=== PATIENT | male | born 1990 | race Caucasian/White ===

== ENCOUNTER 2017-08-17 23:35 | Emergency (ER) | payer SELFPAY ==
[2017-08-18] MEDS: CEPHALEXIN 500 MG CAP PO (03:10)
[2017-08-18] MEDS: TRIMETHOPRIM/SULFAMETHOX (DS) TAB PO (03:10)
== END 2017-08-18 03:21 | disposition home or self-care (01) ==
LOC: FTE 23:35
DX: L02.01 Cutaneous abscess of face (principal)
CPT/HCPCS: 99284